=== PATIENT | female | born 1970 | race Caucasian/White ===

== ENCOUNTER 2017-08-24 10:10 | Day surgery (SDC) | payer MEDICAID ==
[~2017-08-24 10:10] MED LIST: Lactated Ringers 1,000 ML IV SCH
--- NOTE | 2017-08-24 10:50 | PCM.PREANE ---
Preanesthetic Assessment - Anesthesia/Transfusion/Family Hx Anesthesia History: Prior Anesthesia Without Reaction Family History of Anesthesia Reaction: No Transfusion History: Prior Transfusion Without Reaction Intubation History: Unknown - Review of Systems General: No Symptoms Pulmonary: No Symptoms Cardiovascular: No Symptoms Gastrointestinal: No Symptoms, Other (diverticulitis x2) Neurological: No Symptoms Other: Reports: None - Physical Assessment Height: 1.55 m Weight: 102.058 kg ASA Class: 3 Mental Status: Alert & Oriented x3 Airway Class: Mallampati = 2 Dentition: Reports: Normal Dentition Thyro-Mental Finger Breadths: 3 Mouth Opening Finger Breadths: 3 ROM/Head Extension: Full Lungs: Clear to Auscultation, Normal Respiratory Effort Cardiovascular: Regular Rate, Regular Rhythm - Allergies Allergies/Adverse Reactions: Allergies Allergy/AdvReac Type Severity Reaction Status Date / Time tramadol Allergy Difficulty Verified 08/19/17 11:20 Breathing - Blood Blood Available: No - Anesthesia Plan Pre-Op Medication Ordered: None - Acknowledgements Anesthesia Type Planned: MAC Pt an Appropriate Candidate for the Planned Anesthesia: Yes Alternatives and Risks of Anesthesia Discussed w Pt/Guardian: Yes Pt/Guardian Understands and Agrees with Anesthesia Plan: Yes PreAnesthesia Questionnaire HEENT History: Reports: Other (See Below) Other HEENT History: wears glasses Gastrointestinal History: Reports: GERD, Other (See Below) Other Gastrointestinal History: diverticulitis Genitourinary History: Reports: Renal Calculus Musculoskeletal History: Reports: Fracture Other Musculoskeletal History: hx fx wrist, fx left arm, Neurological History: Reports: Concussion Psychiatric History: Reports: Anxiety Endocrine/Metabolic History: Reports: Hypothyroidism, Obesity/BMI 30+ Hematologic History: Reports: Blood Transfusion(s) Dermatologic History: Reports: Eczema - Past Surgical History Head Surgeries/Procedures: Reports: None Female Surgical History: Reports: Lithotripsy/ESWL, Tubal Ligation Musculoskeletal Surgical History: Reports: Other (See Below) Other Musculoskeletal Surgeries/Procedures:: "Right thumb amputation and reattachment; screws in left wrist, bone marrow transfer from rt leg to lt leg as a child" - SUBSTANCE USE Smoking Status *Q: Former Smoker Tobacco Use Within Last Twelve Months: Snuff/Dip Second Hand Smoke Exposure: No Days Per Week of Alcohol Use: 1 Number of Drinks Per Day: 4 Total Drinks Per Week: 4 Recreational Drug Use History: No - HOME MEDS Home Medications: Home Meds FA/Lycopene/Lut/MV,Ca,Iron,Min [Centrum] 1 tab PO DAILY 08/19/17 [History] Phentermine HCl 1 tab PO DAILY 08/19/17 [History] - CURRENT (IN HOUSE) MEDS Current Meds: Current Medications Lactated Ringer's (Ringers, Lactated) 1,000 mls @ 125 mls/hr IV ASDIRECTED JAYLAN
[2017-08-24] MEDS ORDERED: Propofol 200 MG/20 ML SDV ONE (11:38)
[2017-08-24] MEDS ORDERED: Lidocaine 2% 5 ML SDV ONE (11:38)
[2017-08-24] MEDS ORDERED: Midazolam 1 MG/ML 2 ML SDV ONE (11:39)
[2017-08-24] MEDS ORDERED: fentaNYL 100 MCG/2 ML SDV ONE (11:39)
--- NOTE | 2017-08-24 12:54 | PCM.OPNOTE ---
- General Post-Op/Procedure Note Date of Surgery/Procedure: 08/24/17 Operative Procedure(s): Esophagogastroduodenoscopy with biopsy. Colonoscopy. Pre Op Diagnosis: Progressive heartburn. Chronic left lower quadrant pain. Family history of colon cancer. Post-Op Diagnosis: Gastritis with hiatal hernia. Minimal sigmoid diverticulosis. Anesthesia Technique: MAC (ASA III) Primary Surgeon: Ankit Powers Condition: Good Free Text/Narrative:: Dictation [id number] CPT CODE [id number]
[2017-08-24] MEDS ORDERED: Lactated Ringers 1,000 ML IV SCH (13:00)
--- NOTE | 2017-08-24 13:14 | OR ---
SURGEON: Ankit Powers M.D. DATE OF PROCEDURE: 08/24/2017 OPERATION PERFORMED: Colonoscopy. ANESTHESIA: MAC. ASA CLASSIFICATION: III. PREOPERATIVE DIAGNOSES: 1. Left lower quadrant pain. 2. Family history of colon cancer. POSTOPERATIVE DIAGNOSIS: Mild sigmoid diverticulosis. DESCRIPTION OF PROCEDURE: With the patient having completed esophagogastroduodenoscopy, the scopes were switched out and colonoscopy was begun. The colonoscope was inserted into the rectum and advanced with minimal difficulty to the cecum where the colonoscope was retroflexed to visualize the ascending colon from below. The colonoscope was then straightened and slowly withdrawn. The cecum, ascending colon, hepatic flexure, transverse colon, splenic flexure, and descending colon showed no tumors, polyps, diverticula, or angiodysplastic changes. A few small scattered diverticula were noted in the sigmoid colon. No stricture, spasm, or bleeding was noted. The colonoscope was withdrawn to the rectum and retroflexed to visualize the anal orifice from above. No tumors or polyps were seen, and there were no acute hemorrhoidal changes. The colonoscope was then straightened, the rectum aspirated, and the colonoscope removed. The patient tolerated the procedure well and was taken to recovery room in stable condition. CLARISA / ESTEBAN /[id number]
--- NOTE | 2017-08-24 13:49 | PCM48HPAN ---
Post Anesthesia Note - EVALUATION WITHIN 48HRS OF ANESTHETIC Vital Signs in Normal Range: Yes Patient Participated in Evaluation: Yes Respiratory Function Stable: Yes Airway Patent: Yes Cardiovascular Function Stable: Yes Hydration Status Stable: Yes Pain Control Satisfactory: Yes Nausea and Vomiting Control Satisfactory: Yes Mental Status Recovered: Yes Resp Rate: 12 - COMMENTS/OBSERVATIONS Free Text/Narrative:: no anesthesia problems
[2017-08-24 15:48] VITALS: BP 109/58
--- NOTE | 2017-08-25 11:23 | OR ---
SURGEON: Ankit Powers M.D. DATE OF PROCEDURE: 08/24/2017 OPERATION PERFORMED: Esophagogastroduodenoscopy with biopsy. ANESTHESIA: MAC. ASA CLASSIFICATION: III. PREOPERATIVE DIAGNOSIS: Chronic gastroesophageal reflux disease. POSTOPERATIVE DIAGNOSIS: 1. Mild gastritis. 2. Hiatal hernia. DESCRIPTION OF PROCEDURE: The patient was taken to the endoscopy room, positioned on the endoscopy table in the left lateral decubitus position. Time-out was called for appropriate identification of patient and procedure. Monitored anesthesia care was provided. The bite block was placed between the patient's teeth. The gastroscope was inserted through the bite block into the oropharynx and advanced without difficulty through the esophagus and stomach into the duodenum where examination was carried out in a retrograde fashion. The duodenum shows no acute inflammatory changes or ulcerations. The stomach does show a mild linear gastritis. Antral biopsies were obtained to look for the presence of Helicobacter pylori. The gastroscope was then retroflexed to visualize the proximal stomach. No polyps, ulcerations, or tumors were noted. The patient does have a hiatal hernia that could be seen both from below and above. The gastroscope was then slowly withdrawn carefully visualizing the greater and lesser curvatures. No lesions were identified other than the hiatal hernia. The GE junction was well defined and shows no acute inflammatory changes or ulcerations. The esophagus demonstrated good contractility. No mid or proximal lesions were identified. The vocal cords were visualized as the scope was withdrawn and noted to move symmetrically. The gastroscope was then removed with the patient having tolerated the procedure well. Following colonoscopy, she was taken to recovery room in stable condition. CLARISA / ESTEBAN /[id number]
== END 2017-08-24 14:10 | disposition home or self-care (01) ==
LOC: MW.SDS 10:10
PROVIDERS: ATTEND Surgery
DX: Z12.11 Encounter for screening for malignant neoplasm of colon (principal); K29.50 Unspecified chronic gastritis without bleeding; K57.30 Diverticulosis of large intestine without perforation or abscess without bleeding; K44.9 Diaphragmatic hernia without obstruction or gangrene; E03.9 Hypothyroidism, unspecified; Z80.0 Family history of malignant neoplasm of digestive organs; Z88.8 Allergy status to other drugs, medicaments and biological substances; Z79.899 Other long term (current) drug therapy; Z87.891 Personal history of nicotine dependence
CPT/HCPCS: 36415; 43239; 45378; 84703; J2250; J3010; J7120; 00813; 88305; 88312; J2704

== ENCOUNTER 2018-02-25 07:03 | Day surgery (SDC) | payer MEDICAID ==
[~2018-02-25 07:03] MED LIST changes: +Sodium Chloride 0.9% 10 ML Syringe FLUSH PRN; +Sodium Chloride 0.9% 2.5 ML Syringe FLUSH PRN
[2018-02-25] MEDS ORDERED: Sugammadex Sodium 200 MG/2 ML VIAL ONE (07:18)
[2018-02-25] MEDS ORDERED: Glycopyrrolate 0.2 MG/ML SDV ONE (07:21)
[2018-02-25] MEDS ORDERED: Ketorolac 30 MG/ML SDV ONE (07:21)
[2018-02-25] MEDS ORDERED: Ondansetron 4 MG/2 ML SDV ONE (07:21)
[2018-02-25] MEDS ORDERED: Lidocaine 2% 5 ML SDV ONE (07:21)
[2018-02-25] MEDS ORDERED: Rocuronium 10 MG/ML 10 ML Syringe ONE (07:21)
[2018-02-25] MEDS ORDERED: fentaNYL 250 MCG/5 ML SDV ONE (07:23)
[2018-02-25] MEDS ORDERED: Midazolam 1 MG/ML 2 ML SDV ONE (07:23)
[2018-02-25] MEDS ORDERED: Propofol 200 MG/20 ML SDV ONE (07:23)
--- NOTE | 2018-02-25 07:44 | PCM.PREANE ---
Preanesthetic Assessment - Anesthesia/Transfusion/Family Hx Anesthesia History: Prior Anesthesia Without Reaction Family History of Anesthesia Reaction: No Transfusion History: Prior Transfusion Without Reaction Intubation History: Unknown - Review of Systems General: No Symptoms Pulmonary: No Symptoms Cardiovascular: No Symptoms Gastrointestinal: No Symptoms Neurological: No Symptoms Other: Reports: None - Physical Assessment NPO Status Date: 02/25/18 NPO Status Time: 04:30 Height: 5 ft 1 in Weight: 95.254 kg ASA Class: 2 Mental Status: Alert & Oriented x3 Airway Class: Mallampati = 2 Dentition: Reports: Normal Dentition Thyro-Mental Finger Breadths: 3 Mouth Opening Finger Breadths: 3 ROM/Head Extension: Full Lungs: Clear to Auscultation, Normal Respiratory Effort Cardiovascular: Regular Rate, Regular Rhythm - Allergies Allergies/Adverse Reactions: Allergies Allergy/AdvReac Type Severity Reaction Status Date / Time tramadol Allergy Difficulty Verified 02/22/18 12:14 Breathing - Acknowledgements Anesthesia Type Planned: General Anesthesia Pt an Appropriate Candidate for the Planned Anesthesia: Yes Alternatives and Risks of Anesthesia Discussed w Pt/Guardian: Yes Pt/Guardian Understands and Agrees with Anesthesia Plan: Yes PreAnesthesia Questionnaire HEENT History: Reports: Glaucoma, Other (See Below) Other HEENT History: wears glasses Cardiovascular History: Reports: Blood Clots/VTE/DVT, Hypertension Respiratory History: Reports: None Gastrointestinal History: Reports: Chronic Constipation, Diverticulosis, GERD ( Daily) Other Gastrointestinal History: diverticulitis Genitourinary History: Reports: Renal Calculus 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: Musculoskeletal History: Reports: Fracture Other Musculoskeletal History: hx fx wrist, fx left arm, Neurological History: Reports: Concussion Psychiatric History: Reports: Anxiety Endocrine/Metabolic History: Reports: Obesity/BMI 30+ Hematologic History: Reports: Blood Transfusion(s) Immunologic History: Reports: None Oncologic (Cancer) History: Reports: None Dermatologic History: Reports: Eczema - Infectious Disease History Infectious Disease History: Reports: None - Past Surgical History Head Surgeries/Procedures: Reports: None HEENT Surgical History: Reports: Visual Other HEENT Surgeries/Procedures: hx laser surgery for glaucoma GI Surgical History: Reports: Colonoscopy, EGD, Other (See Below) (Hiatal Hernia ) Female Surgical History: Reports: Tubal Ligation Musculoskeletal Surgical History: Reports: ORIF Other Musculoskeletal Surgeries/Procedures:: hx ORIF left wrist (has hardware), hx of traumatic amputation of right thumb-reattached, 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 - SUBSTANCE USE Smoking Status *Q: Current Every Day Smoker Tobacco Use Within Last Twelve Months: Smokeless Tobacco Recreational Drug Use History: No - HOME MEDS Home Medications: Home Meds FA/Lycopene/Lut/MV,Ca,Iron,Min [Centrum] 1 tab PO DAILY 08/19/17 [History] Phentermine HCl 1 tab PO DAILY 08/19/17 [History] Dicyclomine [Bentyl] 10 mg PO TID PRN #30 cap 02/09/18 [Rx] Pantoprazole Sodium [Protonix] 40 mg PO DAILY #30 tablet. 02/09/18 [Rx] Sennosides/Docusate Sodium [Docusate Sodium-Sennosides Tab] 1 each PO DAILY PRN #30 tablet 02/09/18 [Rx] - CURRENT (IN HOUSE) MEDS Current Meds: Current Medications Lactated Ringer's (Ringers, Lactated) 1,000 mls @ 125 mls/hr IV ASDIRECTED JAYLAN Sodium Chloride (Saline Flush) 10 ml FLUSH ASDIRECTED PRN PRN Reason: Keep Vein Open Sodium Chloride (Saline Flush) 2.5 ml FLUSH ASDIRECTED PRN PRN Reason: Keep Vein Open Discontinued Medications Fentanyl (Sublimaze) Confirm Administered Dose 250 mcg .ROUTE .STK-MED ONE Stop: 02/25/18 07:24 Glycopyrrolate (Robinul) Confirm Administered Dose 0.2 mg .ROUTE .STK-MED ONE Stop: 02/25/18 07:22 Ketorolac Tromethamine (Toradol) Confirm Administered Dose 30 mg .ROUTE .STK- MED ONE Stop: 02/25/18 07:22 Lidocaine (Xylocaine-Mpf 2%) Confirm Administered Dose 5 ml .ROUTE .STK-MED ONE Stop: 02/25/18 07:22 Midazolam HCl (Versed 1 Mg/Ml) Confirm Administered Dose 2 mg .ROUTE .STK-MED ONE Stop: 02/25/18 07:24 Ondansetron HCl (Zofran) Confirm Administered Dose 4 mg .ROUTE .STK-MED ONE Stop: 02/25/18 07:22 Propofol (Diprivan 20 Ml) Confirm Administered Dose 200 mg .ROUTE .STK-MED ONE Stop: 02/25/18 07:24 Rocuronium [place] (Zemuron) Confirm Administered Dose 100 mg .ROUTE .STK-MED ONE Stop: 02/25/18 07:22 Sugammadex Sodium (Bridion) Confirm Administered Dose 200 mg .ROUTE .STK-MED ONE Stop: 02/25/18 07:19
[2018-02-25] MEDS ORDERED: Famotidine 20 MG/2 ML SDV IVPUSH ONE (07:45)
[2018-02-25] MEDS ORDERED: Scopolamine 1.5 MG Transdermal Patch TRDERM PRN (07:45)
[2018-02-25] MEDS ORDERED: Midazolam 1 MG/ML 2 ML SDV IVPUSH ONE (07:49)
[2018-02-25] MEDS ORDERED: Bupivacaine 0.5% 30 ML SDV ONE (08:43)
[2018-02-25] MEDS ORDERED: ceFAZolin 1 GM Vial ONE (09:15)
[2018-02-25] MEDS ORDERED: Sodium Chloride 0.9% 20 ML ONE (09:15)
[2018-02-25] MEDS ORDERED: Phenylephrine/Normal Saline 100 MCG/ML 10 ML Syringe ONE (09:17)
--- NOTE | 2018-02-25 10:52 | PCM.OPNOTE ---
- General Post-Op/Procedure Note Date of Surgery/Procedure: 02/25/18 Operative Procedure(s): Laparoscopic cholecystectomy Findings: Dense thick adhesions on the anterior wall of the liver to the abdominal wall, distended mildly inflamed gallbladder. Pre Op Diagnosis: Biliary dyskinesia Post-Op Diagnosis: Biliary dyskinesia, Adhesive capsulitis of the liver Anesthesia Technique: General ET Tube Primary Surgeon: Tatiana Trinh Fluid Replacement, Intraop: 600 Output, Urine Amount: 300 EBL in mLs: 10 Condition: Good
[2018-02-25] MEDS ORDERED: Cyclobenzaprine 10 MG Tab PO PRN ×2 (10:53→14:15)
[2018-02-25] MEDS ORDERED: Promethazine 25 MG/ML SDV IM ONE (11:06)
[2018-02-25] MEDS ORDERED: fentaNYL 250 MCG/5 ML SDV IVPUSH ONE (11:10)
--- NOTE | 2018-02-25 11:10 | PCM.POSTAN ---
POST ANESTHESIA ASSESSMENT - MENTAL STATUS Mental Status: Oriented, Somnolent - RESPIRATORY Respiratory Status: Respiratory Rate WNL, Airway Patent, O2 Saturation Stable - CARDIOVASCULAR CV Status: Pulse Rate WNL, Blood Pressure Stable - GASTROINTESTINAL GI Status: [place] (known with prior anesthetics - ordered phenergan 25mg im) - PAIN Pain Score: 10 (given fentanyl per orders) - POST OP HYDRATION Hydration Status: Adequate & Stable Free Text/Narrative:: continue iv hydration and await any PO intake - OBSERVATIONS Free Text/Narrative:: Bedrest with low lights best treatment for current condition
[2018-02-25] MEDS ORDERED: Promethazine 25 MG/ML SDV ONE (11:11)
[2018-02-25] MEDS ORDERED: fentaNYL 100 MCG/2 ML SDV ONE (11:22)
[2018-02-25] MEDS ORDERED: Promethazine 25 MG/ML SDV IM PRN (14:12)
[2018-02-25] MEDS ORDERED: Metoclopramide 10 MG/2 ML SDV IV PRN (14:12)
[2018-02-25] MEDS ORDERED: Ondansetron 4 MG/2 ML SDV IVPUSH PRN (14:12)
[2018-02-25] MEDS ORDERED: HYDROmorphone 1 MG/ML Syringe IVPUSH PRN (14:12)
[2018-02-25] MEDS ORDERED: diphenhydrAMINE 50 MG/ML SDV IVPUSH PRN (14:12)
--- NOTE | 2018-02-25 14:16 | PCM.SN ---
- Free Text/Narrative Note: Patient is having pain along the RUQ not well controlled with oral medication. Had a lot of nausea after the surgery as well. I performed an extensive lysis of adhesions in the RUQ. Will admit overnight for pain and nausea control. No need for labs in the morning. Ok to have clears as tolerated tonight.
[2018-02-25] MEDS: Acetaminophen/HYDROcodone 325-5 MG Tab PO PRN ×2 (14:21→19:41)
--- NOTE | 2018-02-25 17:29 | PCM.SURGPN ---
- General Info Date of Service: 02/25/18 Date of Surgery/Procedure: 02/25/18 POD#: 0 Functional Status: Reports: Pain Controlled, Tolerating Diet - Review of Systems General: Reports: No Symptoms Pulmonary: Reports: No Symptoms Cardiovascular: Reports: No Symptoms Gastrointestinal: Reports: No Symptoms Musculoskeletal: Reports: No Symptoms Skin: Reports: No Symptoms - Patient Data Vitals - Most Recent: Last Vital Signs Temp 36.0 C 02/25/18 11:50 Pulse 63 02/25/18 15:00 Resp 14 02/25/18 15:00 BP 107/71 02/25/18 15:00 Pulse Ox 97 02/25/18 15:00 Weight - Most Recent: 95.254 kg I&O - Last 24 Hours: Intake & Output 02/25/18 02/25/18 02/25/18 06:59 14:59 22:59 Intake Total 1400 150 Output Total 600 Balance 800 150 Lab Results Last 24 Hrs: Laboratory Results - last 24 hr 02/25/18 Range/Units 07:20 Urine HCG, Qual NEGATIVE (NEGATIVE) Med Orders - Current: Current Medications Hydrocodone Bitart/Acetaminophen ([place] 325-5 Mg) 2 tab PO Q4H PRN PRN Reason: Abdominal Pain Last Admin: 02/25/18 14:21 Dose: 2 tab Cyclobenzaprine HCl (Flexeril) 10 mg PO BID PRN PRN Reason: Muscle Spasm Last Admin: 02/25/18 16:05 Dose: 10 mg Diphenhydramine HCl (Benadryl) 50 mg IVPUSH Q4H PRN PRN Reason: Itching Hydromorphone HCl (Dilaudid) 0.5 mg IVPUSH Q1H PRN PRN Reason: Pain (severe 7-10) Last Admin: 02/25/18 16:23 Dose: 0.5 mg Lactated Ringer's (Ringers, Lactated) 1,000 mls @ 125 mls/hr IV ASDIRECTED [facility] Last Admin: 02/25/18 07:44 Dose: 125 mls/hr Metoclopramide HCl (Reglan) 5 mg IV Q6H PRN PRN Reason: Nausea Ondansetron HCl (Zofran) 4 mg IVPUSH Q6H PRN PRN Reason: Nausea/Vomiting Promethazine HCl (Phenergan) 25 mg IM Q6H PRN PRN Reason: Nausea Scopolamine (Transderm-Scop) 1.5 mg TRDERM Q72H PRN PRN Reason: PONV Last Admin: 02/25/18 07:55 Dose: 1.5 mg Senna/Docusate Sodium (Senna Plus) 1 tab PO BID JAYLAN Sodium Chloride (Saline Flush) 10 ml FLUSH ASDIRECTED PRN PRN Reason: Keep Vein Open Sodium Chloride (Saline Flush) 2.5 ml FLUSH ASDIRECTED PRN PRN Reason: Keep Vein Open Discontinued Medications Bupivacaine HCl (Marcaine 0.5%) Confirm Administered Dose 30 ml .ROUTE .STK-MED ONE Stop: 02/25/18 08:44 Cefazolin Sodium (Ancef) Confirm Administered Dose 2 gm .ROUTE .STK-MED ONE Stop: 02/25/18 09:16 Cyclobenzaprine HCl (Flexeril) 10 mg PO DAILY PRN PRN Reason: Muscle Spasm Famotidine (Pepcid) 20 mg IVPUSH ONETIME ONE Stop: 02/25/18 07:46 Last Admin: 02/25/18 07:55 Dose: 20 mg Fentanyl (Sublimaze) Confirm Administered Dose 250 mcg .ROUTE .STK-MED ONE Stop: 02/25/18 07:24 Fentanyl (Sublimaze) 250 mcg IVPUSH ONETIME ONE Stop: 02/25/18 11:11 Fentanyl (Sublimaze) Confirm Administered Dose 100 mcg .ROUTE .STK-MED ONE Stop: 02/25/18 11:23 Glycopyrrolate (Robinul) Confirm Administered Dose 0.2 mg .ROUTE .STK-MED ONE Stop: 02/25/18 07:22 Sodium Chloride (Normal Saline) Confirm Administered Dose 20 mls @ as directed .ROUTE .STK-MED ONE Stop: 02/25/18 09:16 Ketorolac Tromethamine (Toradol) Confirm Administered Dose 30 mg .ROUTE .STK- MED ONE Stop: 02/25/18 07:22 Lidocaine (Xylocaine-Mpf 2%) Confirm Administered Dose 5 ml .ROUTE .STK-MED ONE Stop: 02/25/18 07:22 Midazolam HCl (Versed 1 Mg/Ml) Confirm Administered Dose 2 mg .ROUTE .STK-MED ONE Stop: 02/25/18 07:24 Midazolam HCl (Versed 1 Mg/Ml) 2 mg IVPUSH ONETIME ONE Stop: 02/25/18 07:50 Last Admin: 02/25/18 07:55 Dose: 2 mg Ondansetron HCl (Zofran) Confirm Administered Dose 4 mg .ROUTE .STK-MED ONE Stop: 02/25/18 07:22 Phenylephrine HCl (Phenylephrine In Ns 100 Mcg/Ml) Confirm Administered Dose 1 mg .ROUTE .STK-MED ONE Stop: 02/25/18 09:18 Promethazine HCl (Phenergan) 25 mg IM ONETIME ONE Stop: 02/25/18 11:07 Last Admin: 02/25/18 11:14 Dose: 25 mg Promethazine HCl (Phenergan) Confirm Administered Dose 25 mg .ROUTE .STK-MED ONE Stop: 02/25/18 11:12 Propofol (Diprivan 20 Ml) Confirm Administered Dose 200 mg .ROUTE .STK-MED ONE Stop: 02/25/18 07:24 Rocuronium [place] (Zemuron) Confirm Administered Dose 100 mg .ROUTE .STK-MED ONE Stop: 02/25/18 07:22 Sugammadex Sodium (Bridion) Confirm Administered Dose 200 mg .ROUTE .STK-MED ONE Stop: 02/25/18 07:19 - Exam General: Alert, Oriented, Cooperative, No Acute Distress Lungs: Normal Respiratory Effort Cardiovascular: Regular Rate GI/Abdominal Exam: Soft, Non-Tender, No Distention, No Mass Skin: Warm, Dry, Intact - Problem List & Annotations (1) Biliary dyskinesia SNOMED Code(s): 915186415 Code(s): K82.8 - OTHER SPECIFIED DISEASES OF GALLBLADDER Status: Acute Current Visit: Yes (2) [id number] syndrome SNOMED Code(s): 174270217 Code(s): IWZ3321 - Status: Acute Current Visit: Yes - Problem List Review Problem List Initiated/Reviewed/Updated: Yes - My Orders Last 24 Hours: Active Orders 24 hr Category Date Time Status RT Incentive Spirometry [RC] Q1HWA Care 02/25/18 14:12 Active Ready for Discharge [RC] PER UNIT ROUTINE Care 02/25/18 10:52 Inactive Up ad Fernanda [RC] ASDIRECTED Care 02/25/18 14:12 Active Vital Signs [RC] PER UNIT ROUTINE Care 02/25/18 14:12 Active Regular Diet [DIET] Diet 02/25/18 Dinner Active HCG QUALITATIVE,URINE [URCHEM] Routine Lab 02/25/18 07:20 Ordered Acetaminophen/HYDROcodone [[place] 325-5 MG] Med 02/25/18 10:53 Active 2 tab PO Q4H PRN Cyclobenzaprine [Flexeril] Med 02/25/18 14:15 Active 10 mg PO BID PRN Docusate Sodium/Sennosides [Senna Plus] Med 02/26/18 08:00 Active 1 tab PO BID HYDROmorphone [Dilaudid] Med 02/25/18 14:12 Active 0.5 mg IVPUSH Q1H PRN Metoclopramide [Reglan] Med 02/25/18 14:12 Active 5 mg IV Q6H PRN Ondansetron [Zofran] Med 02/25/18 14:12 Active 4 mg IVPUSH Q6H PRN Promethazine [Phenergan] Med 02/25/18 14:12 Active 25 mg IM Q6H PRN Scopolamine [Transderm-Scop] Med 02/25/18 07:45 Active 1.5 mg TRDERM Q72H PRN diphenhydrAMINE [Benadryl] Med 02/25/18 14:12 Active 50 mg IVPUSH Q4H PRN Medication Orders Hydrocodone Bitart/Acetaminophen ([place] 325-5 Mg) 2 tab PO Q4H PRN PRN Reason: Abdominal Pain Last Admin: 02/25/18 14:21 Dose: 2 tab Cyclobenzaprine HCl (Flexeril) 10 mg PO BID PRN PRN Reason: Muscle Spasm Last Admin: 02/25/18 16:05 Dose: 10 mg Diphenhydramine HCl (Benadryl) 50 mg IVPUSH Q4H PRN PRN Reason: Itching Hydromorphone HCl (Dilaudid) 0.5 mg IVPUSH Q1H PRN PRN Reason: Pain (severe 7-10) Last Admin: 02/25/18 16:23 Dose: 0.5 mg Lactated Ringer's (Ringers, Lactated) 1,000 mls @ 125 mls/hr IV ASDIRECTED JAYLAN Last Admin: 02/25/18 07:44 Dose: 125 mls/hr Metoclopramide HCl (Reglan) 5 mg IV Q6H PRN PRN Reason: Nausea Ondansetron HCl (Zofran) 4 mg IVPUSH Q6H PRN PRN Reason: Nausea/Vomiting Promethazine HCl (Phenergan) 25 mg IM Q6H PRN PRN Reason: Nausea Scopolamine (Transderm-Scop) 1.5 mg TRDERM Q72H PRN PRN Reason: PONV Last Admin: 02/25/18 07:55 Dose: 1.5 mg Senna/Docusate Sodium (Senna Plus) 1 tab PO BID JAYLAN Sodium Chloride (Saline Flush) 10 ml FLUSH ASDIRECTED PRN PRN Reason: Keep Vein Open Sodium Chloride (Saline Flush) 2.5 ml FLUSH ASDIRECTED PRN PRN Reason: Keep Vein Open - Plan Plan (Free Text/Narrative):: Patient is feeling well this evening. Nausea has resolved and she tolerated some toast earlier. She is taking in good po. Will advance diet to regular and d /c IVF. Encouraged patient to use po medications for pain tonight. If pain is well controlled on oral medications and patient is able to ambulate without difficulty can d/c home tonight. If not will watch overnight and discharge home tomorrow.
--- NOTE | 2018-02-25 18:25 | OR ---
SURGEON: TG YATES MD DATE OF PROCEDURE: 02/25/2018 PREOPERATIVE DIAGNOSIS: Biliary dyskinesia. POSTOPERATIVE DIAGNOSES: 1. Biliary dyskinesia. 2. Gesm-Nzdd-Qbctmo syndrome. PROCEDURES PERFORMED: Laparoscopic cholecystectomy, lysis of adhesions. ANESTHESIA: General endotracheal anesthesia. FLUIDS: 600 mL of crystalloid. URINE OUTPUT: 300 mL. ESTIMATED BLOOD LOSS: 10 mL. FINDINGS: Extensive dense adhesions along the anterior wall of the liver to the anterior abdominal wall. The gallbladder appeared distended and mildly inflamed. COMPLICATIONS: None. INDICATIONS: The patient is a 47-year-old female, who presented to the emergency room several weeks ago with sharp acute epigastric pain. A workup for chest pathology was performed, which was negative. A HIDA scan was done inpatient that showed 0% ejection fraction of the gallbladder consistent with biliary dyskinesia. I explained the need for a cholecystectomy. I explained the laparoscopic and open approaches. I explained to the patient that I would attempt this laparoscopically, but should I be unable to perform it safely, I would convert to open. The patient and I discussed the expected perioperative course as well as the risks including bleeding, infection, or damage to surrounding structures. The patient verbalized understanding and wishes to proceed. PROCEDURE IN DETAIL: The patient was brought into the OR and placed on the OR table in supine position. A time-out was completed verifying the patient's name, age, date of , allergies, and procedure to be performed. General endotracheal anesthesia was induced. The left arm was tucked at the patient's side and a Tucker catheter placed. The abdomen was prepped and draped in usual standard fashion. I anesthetized the supraumbilical midline with 0.5% Marcaine plain. A 3 cm incision was made using a 15 blade. Cautery was used to dissect down to the level of the subcutaneous fat. I bluntly dissected my way down to the level of fascia. The fascia was elevated with Mihir's and incised sharply with Morrison scissors. Entry into the abdomen was palpated. Stay sutures were placed on either side of the fascia using 0 Vicryl. A 12 mm Yael trocar was inserted in the abdomen and the abdomen insufflated to a pressure of 12 mmHg. I inserted a 5 mm 30-degree scope into the abdomen and inspected the area underneath my initial trocar placement. This appeared normal. The patient was placed in reverse Trendelenburg position and airplaned slightly to the left. Upon inspecting the abdomen, the patient was noted to have a thick dense adhesions between the anterior abdominal wall and the anterior surface of the liver. These were consistent with adhesive capsulitis of the liver. In order for me to perform the procedure safely, the decision was made to lyse these adhesions. Using combination of hook cautery and a laparoscopic scissors, I carefully took down these adhesions along the anterior surface of the liver. A few small adhesions over the proximal-most dome of the gallbladder were unable to be reached; however, approximately 95% of the adhesions were taken down. I inspected the right lobe of the liver, there did not appear to be any adhesions along this area. There were no other intraabdominal adhesions noted. This is most consistent with Ntat-Msnx-Rudqjg syndrome. The dissection was completed through 5 mm lap trocars that were placed under direct visualization in the following locations, one in the epigastric area, one along the right flank, and one 2 fingerbreadths below the right subcostal margin in the midclavicular line. Once these adhesions were completely removed, I was then able to grasp the dome of the gallbladder safely with an atraumatic grasper and lifted above the liver. This exposed the infundibulum. The infundibulum was grasped with an atraumatic grasper and I took down the peritoneal attachments around the infundibulum with a Deborah dissector, hook cautery, and a Kittner. I carefully cleared away the attachments until I was able to clearly identify my cystic duct and cystic artery. Once these were visualized, they were doubly clipped and ligated. The gallbladder was then removed from the cystic plate using electrocautery. This was difficult, given that the gallbladder was distended and mildly inflamed. Once the gallbladder was free, the gallbladder fossa was placed in an EndoCatch bag and removed through the 12 mm port site at the supraumbilical area. I then placed the 12 mm Yael trocar back into the abdomen. I inspected my operative field. It appeared to be hemostatic with no evidence of bile leakage. I irrigated the abdomen with normal saline until it ran clear. The 5 mm trocars were then removed under direct visualization and the abdomen allowed to desufflate. The 12 mm trocar was removed, and I closed the fascia at the 12 mm port site with interrupted 0 Vicryl sutures. The subcutaneous fat was closed with interrupted 3-0 Vicryl and the skin was closed with a running 4-0 Monocryl stitch. The 5 mm trocar sites were closed with interrupted 4-0 Monocryl sutures. Steri-Strips and sterile dressings were applied. The patient tolerated the procedure well and was transferred to the PACU in stable condition. TRINH ORELLANA /[id number] MTDD
[2018-02-25 19:23] VITALS: BP 103/64
== END 2018-02-25 21:00 | disposition home or self-care (01) ==
LOC: MW.SDS 07:03 → MW.MS 13:39 → MW.SDS 21:00
PROVIDERS: ATTEND Surgery
DX: K80.10 Calculus of gallbladder with chronic cholecystitis without obstruction (principal); K82.8 Other specified diseases of gallbladder; K66.0 Peritoneal adhesions (postprocedural) (postinfection); K65.8 Other peritonitis; I10 Essential (primary) hypertension; E66.9 Obesity, unspecified; F17.290 Nicotine dependence, other tobacco product, uncomplicated; K21.9 Gastro-esophageal reflux disease without esophagitis; Z79.899 Other long term (current) drug therapy
CPT/HCPCS: 81025; 88304; A9270-GY; J0690; J1170; J1885; J2250; J2370; J2405; J2550; J2704; J3010; J3490; J7120

== ENCOUNTER 2018-10-19 11:25 | Emergency (ER) | payer MEDICAID ==
--- NOTE | 2018-10-19 11:52 | EDM.PDOC ---
ED HPI GENERAL MEDICAL PROBLEM - General Chief Complaint: General Stated Complaint: NUMBNESS IN ARM/BLURRY VISION Time Seen by Provider: 10/19/18 11:35 Source of Information: Reports: Patient History Limitations: Reports: No Limitations - History of Present Illness INITIAL COMMENTS - FREE TEXT/NARRATIVE: HISTORY AND PHYSICAL: History of present illness: Patient is a 48-year-old female who presents to the ED today with concern of dizziness, bilateral hand tingling, and concern for blurred vision x 4 months. She states she also has throat pain which is what brought her to the ED today since yesterday. Patient states that she does sensation in her hands feels like pins and needles. Patient states that she feels dizzy if she stands up too quickly and that her vision will get blurred when this happens. Patient also complains of a sore throat and states that it feels painful to swallow. Patient states she has been able to eat and drink despite this. Patient states she once was told she had an issue with her thyroid but had never following up on this. Patient does wear glasses and has not had her as adjusted in some time according the patient. Patient denies fever, chills, chest pain, shortness of breath, or cough. Denies headache, neck stiff ness, syncope, or near syncope. Denies nausea, vomiting, abdominal pain, diarrhea, constipation, or dysuria. Has not noted any blood in urine or stool. Patient has been eating and drinking appropriately. Review of systems: As per history of present illness and below otherwise all systems reviewed and negative. Past medical history: As per history of present illness and as reviewed below otherwise noncontributory. Surgical history: As per history of present illness and as reviewed below otherwise noncontributory. Social history: See social history for further information Family history: As per history of present illness and as reviewed below otherwise noncontributory. Physical exam: General: Patient is alert, oriented, and in no acute distress. Patient sitting comfortably on exam table. HEENT: Atraumatic, normocephalic, pupils equal and reactive bilaterally, negative for conjunctival pallor or scleral icterus, mucous membranes moist, TMs normal bilaterally, throat is mildly erythematous without exudate, neck supple, nontender, trachea midline. No drooling or trismus noted. No meningeal signs. No hot potato voice noted. Visual acuity was performed upon arrival to the ED and intact. Lungs: Clear to auscultation, breath sounds equal bilaterally, chest nontender. Heart: S1S2, regular rate and rhythm without overt murmur Abdomen: Obese, soft, nondistended, nontender. Negative for masses or hepatosplenomegaly. Negative for costovertebral tenderness. Pelvis: Stable nontender. Genitourinary: Deferred. Rectal: Deferred. Skin: Intact, warm, dry. No lesions or rashes noted. Extremities: Atraumatic, negative for cords or calf pain. Neurovascular unremarkable. Positive Phalen and Tinel sign of the bilateral extremity. Patient has prior scars of the bilateral wrist consistent with surgical history. Neuro: Awake, alert, oriented. Cranial nerves II through XII unremarkable. Cerebellum unremarkable. Motor and sensory unremarkable throughout. Exam nonfocal. Notes: On exam, patient does have positive Phalen and no sign of the bilateral upper extremity suggestive of carpal tunnel. Patient has been dealing with blurry vision chronically. She has not seen the mica miner blasting in several years and she does wear glasses. Patient offered admission for observation for her symptoms but she declines at this time. Discussed the importance for follow-up with primary care provider/mica [facility]asting. Voices understanding and is agreeable to plan of care. Denies any further questions or concerns at this time. Diagnostics: CBC, CMP, UA, urine hCG, EKG, orthostatic vitals, head CT, TSH, strep Therapeutics: Saline, cockup wrist splints Prescription: None Impression: Bilateral carpal tunnel syndrome. Pharyngitis Plan: 1. Use wrist splints at night for symptomatic treatment. 2. Tylenol and/or Ibuprofen as directed for pain management or discomfort. Take medications as prescribed. 3. Follow up with the Orthopedic provider/primary care provider/[facility] [facility] as discussed. Return to the ED as needed and as discussed. Definitive disposition and diagnosis as appropriate pending reevaluation and review of above. throat Pain Score (Numeric/FACES): 3 - Related Data Allergies Allergy/AdvReac Type Severity Reaction Status Date / Time tramadol Allergy Difficulty Verified 10/19/18 11:38 Breathing Home Meds: Home Meds . [No Known Home Meds] 10/19/18 [History] Past Medical History HEENT History: Reports: Glaucoma, Other (See Below) Other HEENT History: wears glasses Cardiovascular History: Reports: Blood Clots/VTE/DVT, Hypertension Respiratory History: Reports: None Gastrointestinal History: Reports: Chronic Constipation, Diverticulosis, GERD Other Gastrointestinal History: diverticulitis Genitourinary History: Reports: Renal Calculus FURNITURE DETAILER History: Reports: Musculoskeletal History: Reports: Fracture Other Musculoskeletal History: hx fx wrist, fx left arm, Neurological History: Reports: Concussion Psychiatric History: Reports: Anxiety Endocrine/Metabolic History: Reports: Obesity/BMI 30+ Hematologic History: Reports: Blood Transfusion(s) Immunologic History: Reports: None Oncologic (Cancer) History: Reports: None Dermatologic History: Reports: Eczema - Infectious Disease History Infectious Disease History: Reports: None - Past Surgical History Head Surgeries/Procedures: Reports: None HEENT Surgical History: Reports: Visual Other HEENT Surgeries/Procedures: hx laser surgery for glaucoma Cardiovascular Surgical History: Reports: None Respiratory Surgical History: Reports: None GI Surgical History: Reports: Colonoscopy, EGD, Other (See Below) Female Surgical History: Reports: Tubal Ligation Endocrine Surgical History: Reports: None Neurological Surgical History: Reports: None Musculoskeletal Surgical History: Reports: ORIF Other Musculoskeletal Surgeries/Procedures:: hx ORIF left wrist (has hardware), hx of traumatic amputation of right thumb-reattached, 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 Oncologic Surgical History: Reports: None Dermatological Surgical History: Reports: None Social & Family History - Family History Family Medical History: Noncontributory - Tobacco Use Smoking Status *Q: Never Smoker Second Hand Smoke Exposure: No - Caffeine Use Caffeine Use: Reports: None - Recreational Drug Use Recreational Drug Use: No ED ROS GENERAL - Review of Systems Review Of Systems: ROS reveals no pertinent complaints other than HPI. ED EXAM, GENERAL - Physical Exam Exam: See Below (See dictation) Course - Vital Signs Last Recorded V/S: Last Vital Signs Temp 36.3 C 10/19/18 13:38 Pulse 50 L 10/19/18 13:38 Resp 16 10/19/18 13:38 BP 114/63 10/19/18 13:38 Pulse Ox 99 10/19/18 13:38 - Orders/Labs/Meds Labs: Laboratory Tests 10/19/18 10/19/18 10/19/18 Range/Units 11:58 11:58 12:00 WBC 6.59 (4.0-11.0) K/uL RBC 4.36 (4.30-5.90) M/uL Hgb 13.0 (12.0-16.0) g/dL Hct 39.0 (36.0-46.0) % MCV 89.4 (80.0-98.0) fL MCH 29.8 (27.0-32.0) pg MCHC 33.3 (31.0-37.0) g/dL RDW Std Deviation 43.1 (28.0-62.0) fl RDW Coeff of Jennifer 13 (11.0-15.0) % Plt Count 274 (150-400) K/uL MPV 9.90 (7.40-12.00) fL Neut % (Auto) 56.1 (48.0-80.0) % Lymph % (Auto) 31.0 (16.0-40.0) % Pershing % (Auto) 9.7 (0.0-15.0) % Eos % (Auto) 2.7 (0.0-7.0) % Baso % (Auto) 0.5 (0.0-1.5) % Neut # (Auto) 3.7 (1.4-5.7) K/uL Lymph # (Auto) 2.0 (0.6-2.4) K/uL Pershing # (Auto) 0.6 (0.0-0.8) K/uL Eos # (Auto) 0.2 (0.0-0.7) K/uL Baso # (Auto) 0.0 (0.0-0.1) K/uL Nucleated RBC % 0.0 /100WBC Nucleated RBCs # 0 K/uL Sodium (136-145) mmol/L Potassium (3.5-5.1) mmol/L Chloride (98-107) mmol/L Carbon Dioxide (21.0-32.0) mmol/L BUN (7.0-18.0) mg/dL Creatinine (0.6-1.0) mg/dL Est Cr Clr Drug Dosing mL/min Estimated GFR (MDRD) ml/min Glucose (74-106) mg/dL Calcium (8.5-10.1) mg/dL Total Bilirubin (0.2-1.0) mg/dL AST (15-37) IU/L ALT (14-63) IU/L Alkaline Phosphatase (46-116) U/L Total Protein (6.4-8.2) g/dL Albumin (3.4-5.0) g/dL Globulin (2.6-4.0) g/dL Albumin/Globulin Ratio (0.9-1.6) TSH 3rd Generation (0.36-3.74) uIU/mL Urine Color YELLOW Urine Appearance CLEAR Urine pH 7.0 (5.0-8.0) Ur Specific Sanford 1.010 (1.001-1.035) Urine Protein NEGATIVE (NEGATIVE) mg/dL Urine Glucose (UA) NEGATIVE (NEGATIVE) mg/dL Urine Ketones NEGATIVE (NEGATIVE) mg/dL Urine Occult Blood NEGATIVE (NEGATIVE) Urine Nitrite NEGATIVE (NEGATIVE) Urine Bilirubin NEGATIVE (NEGATIVE) Urine Urobilinogen 0.2 (<2.0) EU/dL Ur Leukocyte Esterase NEGATIVE (NEGATIVE) Urine RBC 0-1 (0-2/HPF) Urine WBC 0-1 (0-5/HPF) Ur Epithelial Cells RARE (NONE-FEW) Urine Bacteria RARE (NEGATIVE) Urine HCG, Qual NEGATIVE (NEGATIVE) 10/19/18 10/19/18 Range/Units 12:00 12:00 WBC (4.0-11.0) K/uL RBC (4.30-5.90) M/uL Hgb (12.0-16.0) g/dL Hct (36.0-46.0) % MCV (80.0-98.0) fL MCH (27.0-32.0) pg MCHC (31.0-37.0) g/dL RDW Std Deviation (28.0-62.0) fl RDW Coeff of Jennifer (11.0-15.0) % Plt Count (150-400) K/uL MPV (7.40-12.00) fL Neut % (Auto) (48.0-80.0) % Lymph % (Auto) (16.0-40.0) % Pershing % (Auto) (0.0-15.0) % Eos % (Auto) (0.0-7.0) % Baso % (Auto) (0.0-1.5) % Neut # (Auto) (1.4-5.7) K/uL Lymph # (Auto) (0.6-2.4) K/uL Pershing # (Auto) (0.0-0.8) K/uL Eos # (Auto) (0.0-0.7) K/uL Baso # (Auto) (0.0-0.1) K/uL Nucleated RBC % /100WBC Nucleated RBCs # K/uL Sodium 138 (136-145) mmol/L Potassium 3.9 (3.5-5.1) mmol/L Chloride 105 (98-107) mmol/L Carbon Dioxide 24.5 (21.0-32.0) mmol/L BUN 13 (7.0-18.0) mg/dL Creatinine 0.9 (0.6-1.0) mg/dL Est Cr Clr Drug Dosing 57.06 mL/min Estimated GFR (MDRD) > 60.0 ml/min Glucose 110 H (74-106) mg/dL Calcium 8.4 L (8.5-10.1) mg/dL Total Bilirubin 0.3 (0.2-1.0) mg/dL AST 11 L (15-37) IU/L ALT 25 (14-63) IU/L Alkaline Phosphatase 78 (46-116) U/L Total Protein 7.0 (6.4-8.2) g/dL Albumin 3.2 L (3.4-5.0) g/dL Globulin 3.8 (2.6-4.0) g/dL Albumin/Globulin Ratio 0.8 L (0.9-1.6) TSH 3rd Generation 3.43 (0.36-3.74) uIU/mL Urine Color Urine Appearance Urine pH (5.0-8.0) Ur Specific Sanford (1.001-1.035) Urine Protein (NEGATIVE) mg/dL Urine Glucose (UA) (NEGATIVE) mg/dL Urine Ketones (NEGATIVE) mg/dL Urine Occult Blood (NEGATIVE) Urine Nitrite (NEGATIVE) Urine Bilirubin (NEGATIVE) Urine Urobilinogen (<2.0) EU/dL Ur Leukocyte Esterase (NEGATIVE) Urine RBC (0-2/HPF) Urine WBC (0-5/HPF) Ur Epithelial Cells (NONE-FEW) Urine Bacteria (NEGATIVE) Urine HCG, Qual (NEGATIVE) Meds: Medications Discontinued Medications Generic Name Dose Route Start Last Admin Trade Name Freq PRN Reason Stop Dose Admin Sodium Chloride 1,000 mls @ 999 mls/hr 10/19/18 11:49 10/19/18 12:06 Normal Saline IV 10/19/18 12:49 999 mls/hr STAT ONE Administration Departure - Departure Time of Disposition: 13:29 Disposition: Home, Self-Care 01 Clinical Impression: Carpal tunnel syndrome Qualifiers: Laterality: bilateral Qualified Code(s): G56.03 - Carpal tunnel syndrome, bilateral upper limbs Pharyngitis Qualifiers: Pharyngitis/tonsillitis etiology: unspecified etiology Qualified Code(s): J02.9 - Acute pharyngitis, unspecified - Discharge Information Instructions: Carpal Tunnel Syndrome, Pharyngitis, [id number] Referrals: Jett Phoenix MD [Primary Care Provider] - Forms: ED Department Discharge Additional Instructions: The following information is given to patients seen in the emergency department who are being discharged to home. This information is to outline your options for follow-up care. We provide all patients seen in our emergency department with a follow-up referral. The need for follow-up, as well as the timing and circumstances, are variable depending upon the specifics of your emergency department visit. If you don't have a primary care physician on staff, we will provide you with a referral. We always advise you to contact your personal physician following an emergency department visit to inform them of the circumstance of the visit and for follow-up with them and/or the need for any referrals to a consulting specialist. The emergency department will also refer you to a specialist when appropriate. This referral assures that you have the opportunity for follow-up care with a specialist. All of these measure are taken in an effort to provide you with optimal care, which includes your follow-up. Under all circumstances we always encourage you to contact your private physician who remains a resource for coordinating your care. When calling for follow-up care, please make the office aware that this follow-up is from your recent emergency room visit. If for any reason you are refused follow-up, please contact the [facility] Emergency Department at and asked to speak to the emergency department charge nurse. [facility] [address] [place] [id number] [facility] [address] [place] [id number] 1. Use wrist splints at night for symptomatic treatment. 2. Tylenol and/or Ibuprofen as directed for pain management or discomfort. Take medications as prescribed. 3. Follow up with the Orthopedic provider/primary care provider/[employer] [facility]er blasting as discussed. Return to the ED as needed and as discussed.
[2018-10-19] MEDS: Sodium Chloride 0.9% 1,000 ML IV ONE (12:06)
[2018-10-19 12:41] LABS: CHLORIDE,CL 105 mmol/L (98-107); SODIUM,NA 138 mmol/L (136-145)
--- NOTE | 2018-10-19 12:55 | CT ---
EXAMINATION: Non contrast CT head. Coronal and sagittal reformats. HISTORY: Dizziness FINDINGS: No evidence of intra or extra axial hemorrhage, mass, midline shift, hydrocephalus or edema. No hypoattenuation changes in the major vascular territories to suggest acute infarct. No abnormal intracranial calcifications are detected. No evidence of substantial vascular calcifications. There is opacification of the single ethmoid air cell. Paranasal sinuses and mastoid air cells are otherwise clear. Orbits and globes are symmetric. Pituitary fossa appears unremarkable. Calvarium is intact. No evidence of skull fracture. IMPRESSION: No acute intracranial findings.
[2018-10-19 13:39] VITALS: BP 114/63
== END 2018-10-19 13:57 | disposition home or self-care (01) ==
LOC: MW.ED 11:25
DX: G56.03 Carpal tunnel syndrome, bilateral upper limbs (principal); J02.9 Acute pharyngitis, unspecified; I10 Essential (primary) hypertension; Z88.5 Allergy status to narcotic agent
CPT/HCPCS: 36415; 70450; 80053; 81001; 81025; 84443; 85025; 87081; 87880; 93005; 96360; 96361; 99284; J7040

== ENCOUNTER 2018-12-25 20:36 | Emergency (ER) | payer MEDICAID ==
--- NOTE | 2018-12-25 20:48 | EDM.PDOC ---
ED HPI GENERAL MEDICAL PROBLEM - General Chief Complaint: Lower Extremity Injury/Pain Stated Complaint: INJURED ANKLE Time Seen by Provider: 12/25/18 20:38 Source of Information: Reports: Patient History Limitations: Reports: No Limitations - History of Present Illness INITIAL COMMENTS - FREE TEXT/NARRATIVE: HISTORY AND PHYSICAL: History of present illness: Patient is a 48-year-old female who presents to the ED today via EMS with concern of right ankle injury just prior to arrival to the ED. Patient states she was at the bar and has had a few drinks and went to go lift a friend when she had slipped and twisted her right ankle. Patient denies any head injury or loss of consciousness. Patient denies any prior injury or trauma to the ankle. Patient denies fever, chills, chest pain, shortness of breath, or cough. Denies headache, neck stiff ness, change in vision, syncope, or near syncope. Denies nausea, vomiting, abdominal pain, diarrhea, constipation, or dysuria. Has not noted any blood in urine or stool. Patient has been eating and drinking appropriately. Review of systems: As per history of present illness and below otherwise all systems reviewed and negative. Past medical history: As per history of present illness and as reviewed below otherwise noncontributory. Surgical history: As per history of present illness and as reviewed below otherwise noncontributory. Social history: See social history for further information Family history: As per history of present illness and as reviewed below otherwise noncontributory. Physical exam: General: Patient is alert, oriented, and in no acute distress. Patient laying comfortably on exam table. HEENT: Atraumatic, normocephalic, pupils equal and reactive bilaterally, negative for conjunctival pallor or scleral icterus, mucous membranes moist, TMs normal bilaterally, throat clear, neck supple, nontender, trachea midline. No drooling or trismus noted. No meningeal signs. No hot potato voice noted. Lungs: Clear to auscultation, breath sounds equal bilaterally, chest nontender. Heart: S1S2, regular rate and rhythm without overt murmur Abdomen: Soft, nondistended, nontender. Negative for masses or hepatosplenomegaly. Negative for costovertebral tenderness. Pelvis: Stable nontender. Genitourinary: Deferred. Rectal: Deferred. Skin: Intact, warm, dry. No lesions or rashes noted. Extremities: Negative for cords or calf pain. Neurovascular unremarkable. Swelling of the right ankle both medially and laterally with obvious deformity. DP/PT intact with Doppler of right extremity. Unable to assess range of motion of ankle and knee due to pain and hesitation. Patient does have full range of motion of all digits on the toe and sensation of right extremity. Neuro: Awake, alert, oriented. Cranial nerves II through XII unremarkable. Cerebellum unremarkable. Motor and sensory unremarkable throughout. Exam nonfocal. Notes: Dr. Arteaga verbally involved in patient care. Dr. Miller, physician at [facility] in [place], was consult on patient and agreeable to transfer. Voices understanding and is agreeable to plan of care. Denies any further questions or concerns at this time. Diagnostics: Ankle XR, CBC, CMP, UA, EKG, ethanol Therapeutics: NS, Morphine, Zofran Impression: Distal fibula fracture, right Medial malleoli fracture, right Ankle dislocation, right Plan: 1. Transfer to [facility] via EMS. Definitive disposition and diagnosis as appropriate pending reevaluation and review of above. right ankle Pain Score (Numeric/FACES): 1 - Related Data Allergies Allergy/AdvReac Type Severity Reaction Status Date / Time pistachio nut Allergy Swelling Verified 12/25/18 20:41 strawberry Allergy Swelling Verified 12/25/18 20:41 tramadol Allergy Difficulty Verified 12/25/18 20:41 Breathing Home Meds: Home Meds . 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: Musculoskeletal History: Reports: Fracture Other Musculoskeletal History: hx fx wrist, fx left arm, Neurological History: Reports: Concussion Psychiatric History: Reports: Anxiety Endocrine/Metabolic History: Reports: Obesity/BMI 30+ Hematologic History: Reports: Blood Transfusion(s) Immunologic History: Reports: None Oncologic (Cancer) History: Reports: None Dermatologic History: Reports: Eczema - Infectious Disease History Infectious Disease History: Reports: None - Past Surgical History Head Surgeries/Procedures: Reports: None HEENT Surgical History: Reports: Visual Other HEENT Surgeries/Procedures: hx laser surgery for glaucoma Cardiovascular Surgical History: Reports: None Respiratory Surgical History: Reports: None GI Surgical History: Reports: Colonoscopy, EGD, Other (See Below) Female Surgical History: Reports: Tubal Ligation Endocrine Surgical History: Reports: None Neurological Surgical History: Reports: None Musculoskeletal Surgical History: Reports: ORIF Other Musculoskeletal Surgeries/Procedures:: hx ORIF left wrist (has hardware), hx of traumatic amputation of right thumb-reattached, 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 Oncologic Surgical History: Reports: None Dermatological Surgical History: Reports: None Social & Family History - Family History Family Medical History: Noncontributory - Caffeine Use Caffeine Use: Reports: None Review of Systems - Review of Systems Review Of Systems: ROS reveals no pertinent complaints other than HPI. ED EXAM, GENERAL - Physical Exam Exam: See Below (see dictation) Course - Vital Signs Last Recorded V/S: Last Vital Signs Temp 36 C 12/25/18 20:40 Pulse 56 L 12/25/18 21:41 Resp 18 12/25/18 21:41 BP 106/61 12/25/18 21:41 Pulse Ox 96 12/25/18 21:41 - Orders/Labs/Meds Orders: Active Orders 24 hr Category Date Time Status EKG 12 Lead [EKG Documentation Completion] [RC] STAT Care 12/25/18 20:49 Active Ondansetron [Zofran] Med 12/25/18 22:14 Once 4 mg IVPUSH ONETIME ONE Sodium Chloride 0.9% [Normal Saline] 1,000 ml Med 12/25/18 22:14 Ordered IV STAT Labs: Laboratory Tests 12/25/18 12/25/18 12/25/18 Range/Units 21:15 21:15 21:40 WBC 6.06 (4.0-11.0) K/uL RBC 4.14 L (4.30-5.90) M/uL Hgb 12.2 (12.0-16.0) g/dL Hct 37.0 (36.0-46.0) % MCV 89.4 (80.0-98.0) fL MCH 29.5 (27.0-32.0) pg MCHC 33.0 (31.0-37.0) g/dL RDW Std Deviation 43.0 (28.0-62.0) fl RDW Coeff of Jennifer 13 (11.0-15.0) % Plt Count 252 (150-400) K/uL MPV 9.80 (7.40-12.00) fL Neut % (Auto) 58.6 (48.0-80.0) % Lymph % (Auto) 33.8 (16.0-40.0) % Blaine % (Auto) 5.9 (0.0-15.0) % Eos % (Auto) 1.2 (0.0-7.0) % Baso % (Auto) 0.5 (0.0-1.5) % Neut # (Auto) 3.6 (1.4-5.7) K/uL Lymph # (Auto) 2.1 (0.6-2.4) K/uL Blaine # (Auto) 0.4 (0.0-0.8) K/uL Eos # (Auto) 0.1 (0.0-0.7) K/uL Baso # (Auto) 0.0 (0.0-0.1) K/uL Nucleated RBC % 0.0 /100WBC Nucleated RBCs # 0 K/uL Sodium 133 L (136-145) mmol/L Potassium 3.4 L (3.5-5.1) mmol/L Chloride 100 (98-107) mmol/L Carbon Dioxide 24.0 (21.0-32.0) mmol/L BUN 8 (7.0-18.0) mg/dL Creatinine 0.8 (0.6-1.0) mg/dL Est Cr Clr Drug Dosing TNP Estimated GFR (MDRD) > 60.0 ml/min Glucose 103 (74-106) mg/dL Calcium 7.8 L (8.5-10.1) mg/dL Total Bilirubin 0.2 (0.2-1.0) mg/dL AST 15 (15-37) IU/L ALT 23 (14-63) IU/L Alkaline Phosphatase 76 (46-116) U/L Total Protein 6.6 (6.4-8.2) g/dL Albumin 3.2 L (3.4-5.0) g/dL Globulin 3.4 (2.6-4.0) g/dL Albumin/Globulin Ratio 0.9 (0.9-1.6) Urine Color YELLOW Urine Appearance CLEAR Urine pH 6.0 (5.0-8.0) Ur Specific Offerman 1.010 (1.001-1.035) Urine Protein NEGATIVE (NEGATIVE) mg/dL Urine Glucose (UA) NEGATIVE (NEGATIVE) mg/dL Urine Ketones NEGATIVE (NEGATIVE) mg/dL Urine Occult Blood TRACE-LYSED H (NEGATIVE) Urine Nitrite NEGATIVE (NEGATIVE) Urine Bilirubin NEGATIVE (NEGATIVE) Urine Urobilinogen 0.2 (<2.0) EU/dL Ur Leukocyte Esterase NEGATIVE (NEGATIVE) Urine RBC 0-2 (0-2/HPF) Urine WBC 0-3 (0-5/HPF) Ur Epithelial Cells FEW (NONE-FEW) Urine Bacteria FEW (NEGATIVE) Ethyl Alcohol 184 mg/dL Meds: Medications Discontinued Medications Generic Name Dose Route Start Last Admin Trade Name Freq PRN Reason Stop Dose Admin Morphine Sulfate 2 mg 12/25/18 21:34 12/25/18 21:41 Morphine IVPUSH 12/25/18 21:35 2 mg ONETIME ONE Administration Departure - Departure Time of Disposition: 22:16 Disposition: DC/[facility]fer to [facility] 02 Clinical Impression: Fracture of distal fibula Qualifiers: Encounter type: initial encounter Fracture type: closed Fracture morphology: other fracture Laterality: right Qualified Code(s): S82.831A - Other fracture of upper and lower end of right fibula, initial encounter for closed fracture Closed fracture of ankle, medial malleolus Qualifiers: Encounter type: initial encounter Fracture alignment: nondisplaced Laterality: right Qualified Code(s): S82.54XA - Nondisplaced fracture of medial malleolus of right tibia, initial encounter for closed fracture Closed fracture of ankle, lateral malleolus Qualifiers: Encounter type: initial encounter Fracture alignment: nondisplaced Laterality: right Qualified Code(s): S82.64XA - Nondisplaced fracture of lateral malleolus of right fibula, initial encounter for closed fracture Ankle dislocation Qualifiers: Encounter type: initial encounter Laterality: right Qualified Code(s): S93.04XA - Dislocation of right ankle joint, initial encounter - Discharge Information Referrals: PCP,None [Primary Care Provider] - Forms: ED Department Discharge - My Orders Last 24 Hours: My Active Orders 12/25/18 20:49 EKG 12 Lead [EKG Documentation Completion] [RC] STAT 12/25/18 22:14 Ondansetron [Zofran] 4 mg IVPUSH ONETIME ONE Sodium Chloride 0.9% [Normal Saline] 1,000 ml IV STAT - Assessment/Plan Last 24 Hours: My Active Orders 12/25/18 20:49 EKG 12 Lead [EKG Documentation Completion] [RC] STAT 12/25/18 22:14 Ondansetron [Zofran] 4 mg IVPUSH ONETIME ONE Sodium Chloride 0.9% [Normal Saline] 1,000 ml IV STAT
[2018-12-25] MEDS ORDERED: Morphine 2 MG/ML Syringe IVPUSH ONE (21:34)
--- NOTE | 2018-12-25 21:37 | CR ---
Indication: Injury and pain Technique: Right ankle 3 views Comparison: None Findings/Impression: Bones: Fractures are present in the distal fibular shaft and medial and posterior malleoli. Ankle joint is dislocated as visualized on the lateral image. Joint spaces: Ankle joint is dislocated. Soft tissues: Moderate generalized soft tissue swelling. Dictated by Erasmo Sandoval MD @ Dec 25 2018 9:34PM Signed by Dr. Erasmo Sandoval @ Dec 25 2018 9:36PM
--- NOTE | 2018-12-25 21:39 | CR ---
Indication: Injury and pain Technique: Right foot 2 views Comparison: None Findings/Impression: Bones: There are fractures of both the ankle joint and ankle joint dislocation. No fractures evident in the foot. Joint spaces: Joint spaces in the foot are unremarkable. Soft tissues: Unremarkable. Dictated by Erasmo Sandoval MD @ Dec 25 2018 9:36PM Signed by Dr. Erasmo Sandoval @ Dec 25 2018 9:37PM
--- NOTE | 2018-12-25 21:39 | CR ---
Indication: Injury and pain Technique: Right tibia and fibula 2 views Comparison: None Findings/Impression: Bones: Fractures in the distal tibia and fibula are detailed on the separate x-ray report of the ankle. Proximal to mid tibia and fibula are normal. Joint spaces: Knee joint is unremarkable. Soft tissues: Unremarkable. Dictated by Erasmo Sandoval MD @ Dec 25 2018 9:37PM Signed by Dr. Erasmo Sandoval @ Dec 25 2018 9:38PM
[2018-12-25 21:41] LABS: CHLORIDE,CL 100 mmol/L (98-107); SODIUM,NA 133 mmol/L (136-145)
[2018-12-25] MEDS ORDERED: Ondansetron 4 MG/2 ML SDV IVPUSH ONE ×2 (22:14→23:16)
[2018-12-25] MEDS ORDERED: Sodium Chloride 0.9% 1,000 ML IV ONE ×2 (22:14→22:51)
[2018-12-25] MEDS ORDERED: Pantoprazole 80 MG in Sodium Chloride 0.9% 100 ML IVPUSH ONE ×2 (22:48→22:54)
[2018-12-25] MEDS ORDERED: Sodium Chloride 0.9% 10 ML SDV IV ONE (22:51)
[2018-12-25] MEDS ORDERED: Pantoprazole 40 MG Vial IVPUSH STA (22:58)
[2018-12-25] MEDS ORDERED: HYDROmorphone 1 MG/ML Syringe IVPUSH ONE (23:10)
[2018-12-25 23:24] VITALS: BP 106/40
[2018-12-26] MEDS ORDERED: HYDROmorphone 1 MG/ML Syringe IVPUSH ONE (00:51)
== END 2018-12-26 01:17 ==
LOC: MW.ED 20:36
DX: S82.844A Nondisplaced bimalleolar fracture of right lower leg, initial encounter for closed fracture (principal); S82.831A Other fracture of upper and lower end of right fibula, initial encounter for closed fracture; I10 Essential (primary) hypertension; Z88.5 Allergy status to narcotic agent; E66.9 Obesity, unspecified; X50.1XXA Overexertion from prolonged static or awkward postures, initial encounter; Z68.30 Body mass index [BMI] 30.0-30.9, adult
CPT/HCPCS: 29515; 36415; 73590; 73610; 73620; 80053; 81001; 85025; 93005; 96361; 96374; 96375; 96376; 99285; C9113; G0480; J1170; J2270; J2405; J7040; J7050; 99284

== ENCOUNTER 2019-01-07 17:58 | Emergency (ER) | payer SELFPAY ==
--- NOTE | 2019-01-07 19:33 | CR ---
INDICATION: Pain, throbbing and burning for 2 days. TECHNIQUE: AP, oblique and cross-table lateral projections. COMPARISON: 12/25/2018. FINDINGS: Status post open reduction and internal fixation of fractures involving the fibula and distal tibia. Internal plate and screws at the fibula. Syndesmotic screws. Screw positioned through the medial distal tibial metaphysis. The fibular fracture remains mildly displaced. The ankle mortise is intact. Visualized hardware is intact. Surgical wound closure belem are present. IMPRESSION: Status post ORIF as described. No definite acute findings. Dictated by Maurizio Murray MD @ Jan 07 2019 7:29PM Signed by Dr. Maurizio Mruray @ Jan 07 2019 7:32PM
--- NOTE | 2019-01-07 19:46 | EDM.PDOC ---
ED HPI GENERAL MEDICAL PROBLEM - General Chief Complaint: Lower Extremity Injury/Pain Stated Complaint: BROKE RIGHT ANKLE Time Seen by Provider: 01/07/19 18:26 Source of Information: Reports: Patient History Limitations: Reports: No Limitations - History of Present Illness INITIAL COMMENTS - FREE TEXT/NARRATIVE: HISTORY AND PHYSICAL: History of present illness: Patient is a 48-year-old female who presents to the ED today with concern of splint discomfort following surgical repair of a trimalleolar fracture of her ankle. Patient states she's also concerned because she has bumped her foot a few times when trying to get around the house and just wants to make sure she has not been some hardware in her ankle. Patient denies any other symptoms or concerns at this time. Patient states there is pain and swelling of the foot but it has not worsened other than the cast/splint discomfort. Patient denies any new injury or trauma to the foot. Patient denies fever, chills, chest pain, shortness of breath, or cough. Denies headache, neck stiff ness, change in vision, syncope, or near syncope. Denies nausea, vomiting, abdominal pain, diarrhea, constipation, or dysuria. Has not noted any blood in urine or stool. Patient has been eating and drinking appropriately. Review of systems: As per history of present illness and below otherwise all systems reviewed and negative. Past medical history: As per history of present illness and as reviewed below otherwise noncontributory. Surgical history: As per history of present illness and as reviewed below otherwise noncontributory. Social history: See social history for further information Family history: As per history of present illness and as reviewed below otherwise noncontributory. Physical exam: General: Patient is alert, oriented, and in no acute distress. Patient sitting comfortably in wheelchair with right leg elevated. HEENT: Atraumatic, normocephalic, pupils equal and reactive bilaterally, negative for conjunctival pallor or scleral icterus, mucous membranes moist, TMs normal bilaterally, throat clear, neck supple, nontender, trachea midline. No drooling or trismus noted. No meningeal signs. No hot potato voice noted. Lungs: Clear to auscultation, breath sounds equal bilaterally, chest nontender. Heart: S1S2, regular rate and rhythm without overt murmur Abdomen: Soft, nondistended, nontender. Negative for masses or hepatosplenomegaly. Negative for costovertebral tenderness. Pelvis: Stable nontender. Genitourinary: Deferred. Rectal: Deferred. Skin: Intact, warm, dry. No lesions or rashes noted. Extremities: Negative for cords or calf pain. Neurovascular unremarkable. There are incisions on both the medial and lateral aspects of the ankle that have belem still intact. The incisions are not erythematous and appear to be healing well. There is no drainage from the sensation sites. There is some swelling of the generalized ankle and foot. Dorsalis pedis and posterior tibial pulses are intact with Doppler. Patient does have full range of motion of all digits on the foot. Neuro: Awake, alert, oriented. Cranial nerves II through XII unremarkable. Cerebellum unremarkable. Motor and sensory unremarkable throughout. Exam nonfocal. Notes: Did remove patient's splint and we splinted for patient to be a little bit more comfortable for her. Discussed the importance for follow-up with her orthopedic provider. Voices understanding and is agreeable to plan of care. Denies any further questions or concerns at this time. Diagnostics: Ankle x-ray Therapeutics: Splint Prescription: None Impression: Discomfort of splint Recent trimalleolar fracture surgery Plan: 1. Rest elevate the affected extremity. 2. Tylenol and/or Ibuprofen as directed for pain management or discomfort. 3. Follow up with the Orthopedic provider as discussed and as scheduled. Return to the ED as needed and as discussed. Definitive disposition and diagnosis as appropriate pending reevaluation and review of above. right ankle Pain Score (Numeric/FACES): 7 - Related Data Allergies Allergy/AdvReac Type Severity Reaction Status Date / Time pistachio nut Allergy Swelling Verified 12/25/18 20:41 strawberry Allergy Swelling Verified 12/25/18 20:41 tramadol Allergy Difficulty Verified 12/25/18 20:41 Breathing Home Meds: Home Meds . 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: Musculoskeletal History: Reports: Fracture Other Musculoskeletal History: hx fx wrist, fx left arm, Neurological History: Reports: Concussion Psychiatric History: Reports: Anxiety Endocrine/Metabolic History: Reports: Obesity/BMI 30+ Hematologic History: Reports: Blood Transfusion(s) Immunologic History: Reports: None Oncologic (Cancer) History: Reports: None Dermatologic History: Reports: Eczema - Infectious Disease History Infectious Disease History: Reports: None - Past Surgical History Head Surgeries/Procedures: Reports: None HEENT Surgical History: Reports: Visual Other HEENT Surgeries/Procedures: hx laser surgery for glaucoma Cardiovascular Surgical History: Reports: None Respiratory Surgical History: Reports: None GI Surgical History: Reports: Colonoscopy, EGD, Other (See Below) Female Surgical History: Reports: Tubal Ligation Endocrine Surgical History: Reports: None Neurological Surgical History: Reports: None Musculoskeletal Surgical History: Reports: ORIF Other Musculoskeletal Surgeries/Procedures:: hx ORIF left wrist (has hardware), hx of traumatic amputation of right thumb-reattached, 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 Oncologic Surgical History: Reports: None Dermatological Surgical History: Reports: None Social & Family History - Family History Family Medical History: Noncontributory - Tobacco Use Smoking Status *Q: Never Smoker - Caffeine Use Caffeine Use: Reports: None - Recreational Drug Use Recreational Drug Use: No Review of Systems - Review of Systems Review Of Systems: ROS reveals no pertinent complaints other than HPI. ED EXAM, GENERAL - Physical Exam Exam: See Below (See dictation) Course - Vital Signs Last Recorded V/S: Last Vital Signs Temp 36.3 C 01/07/19 18:13 Pulse 60 01/07/19 18:13 Resp 18 01/07/19 18:13 BP 141/54 H 01/07/19 18:13 Pulse Ox 98 01/07/19 18:13 - Orders/Labs/Meds Orders: Active Orders 24 hr Category Date Time Status Communication Order [RC] STAT Care 01/07/19 19:46 Ordered Departure - Departure Time of Disposition: 19:45 Disposition: Home, Self-Care 01 Clinical Impression: Encounter for assessment of cast, Recent surgical procedure on lower extremity - Discharge Information Instructions: Medical Screening Exam Referrals: PCP,None [Primary Care Provider] - Forms: ED Department Discharge Additional Instructions: The following information is given to patients seen in the emergency department who are being discharged to home. This information is to outline your options for follow-up care. We provide all patients seen in our emergency department with a follow-up referral. The need for follow-up, as well as the timing and circumstances, are variable depending upon the specifics of your emergency department visit. If you don't have a primary care physician on staff, we will provide you with a referral. We always advise you to contact your personal physician following an emergency department visit to inform them of the circumstance of the visit and for follow-up with them and/or the need for any referrals to a consulting specialist. The emergency department will also refer you to a specialist when appropriate. This referral assures that you have the opportunity for follow-up care with a specialist. All of these measure are taken in an effort to provide you with optimal care, which includes your follow-up. Under all circumstances we always encourage you to contact your private physician who remains a resource for coordinating your care. When calling for follow-up care, please make the office aware that this follow-up is from your recent emergency room visit. If for any reason you are refused follow-up, please contact the [facility] Emergency Department at and asked to speak to the emergency department charge nurse. [facility] [address] [place] [address] [place] [address] 1. Rest elevate the affected extremity. 2. Tylenol and/or Ibuprofen as directed for pain management or discomfort. 3. Follow up with the Orthopedic provider as discussed and as scheduled. Return to the ED as needed and as discussed. - My Orders Last 24 Hours: My Active Orders 01/07/19 19:46 Communication Order [RC] STAT - Assessment/Plan Last 24 Hours: My Active Orders 01/07/19 19:46 Communication Order [RC] STAT
[2019-01-07 20:10] VITALS: BP 137/56
== END 2019-01-07 20:10 | disposition home or self-care (01) ==
LOC: MW.ED 17:58
DX: S82.851D Displaced trimalleolar fracture of right lower leg, subsequent encounter for closed fracture with routine healing (principal); I10 Essential (primary) hypertension; E66.9 Obesity, unspecified; Z68.41 Body mass index [BMI] 40.0-44.9, adult; W01.0XXD Fall on same level from slipping, tripping and stumbling without subsequent striking against object, subsequent encounter; Z91.018 Allergy to other foods; Z88.5 Allergy status to narcotic agent
CPT/HCPCS: 73610-26-RT; 73610-RT; 99283-25

== ENCOUNTER 2019-05-15 13:36 | Emergency (ER) | payer MEDICAID ==
[2019-05-15 13:57] VITALS: BP 148/90; PULSE 69
[2019-05-15] MEDS ORDERED: Ketorolac 60 MG/2 ML SDV IM ONE (14:07)
--- NOTE | 2019-05-15 14:46 | EDM.PDOC ---
ED HPI GENERAL MEDICAL PROBLEM - General Chief Complaint: Respiratory Problem Stated Complaint: FLU SYMPTOMS Time Seen by Provider: 05/15/19 13:38 Source of Information: Reports: Patient History Limitations: Reports: No Limitations - History of Present Illness INITIAL COMMENTS - FREE TEXT/NARRATIVE: History of present illness: []She has had 3 days of flulike symptoms with congestion, head pressure, body aches, nausea, diarrhea, chills but denies any fevers. Review of systems: As per history of present illness and below otherwise all systems reviewed and negative. Past medical history: As per history of present illness and as reviewed below otherwise noncontributory. Surgical history: As per history of present illness and as reviewed below otherwise noncontributory. Social history: No reported history of drug or alcohol abuse. Family history: As per history of present illness and as reviewed below otherwise noncontributory. Physical exam: General: Well developed, well nourished in NAD HEENT: Atraumatic, normocephalic, pupils reactive, negative for conjunctival pallor or scleral icterus, mucous membranes moist, throat clear, neck supple, nontender, trachea midline. Lungs: Clear to auscultation, breath sounds equal bilaterally, chest nontender. Heart: S1S2, regular, negative for clicks, rubs, or JVD. Abdomen: NABS, Soft, nondistended, nontender. Negative for masses or hepatosplenomegaly. Negative for costovertebral tenderness. Pelvis: Stable nontender. Genitourinary: Deferred. Rectal: Deferred. Extremities: Atraumatic, negative for cords or calf pain. Neurovascular unremarkable. Neuro: Awake, alert, oriented. Cranial nerves II through XII unremarkable. Cerebellum unremarkable. Motor and sensory unremarkable throughout. Exam nonfocal. Skin:warm and dry Diagnostics: Influenza negative Therapeutics: Toradol ED Course: Stable Impression: viral URI Prescriptions: none Plan: Take meds as directed, follow up with your primary care physician, return to ER if symptoms worsen or change. Definitive disposition and diagnosis as appropriate pending reevaluation and review of above. headache/ears Pain Score (Numeric/FACES): 1 - Related Data Allergies Allergy/AdvReac Type Severity Reaction Status Date / Time pistachio nut Allergy Swelling Verified 05/15/19 13:57 strawberry Allergy Swelling Verified 05/15/19 13:57 tramadol Allergy Difficulty Verified 05/15/19 13:57 Breathing Home Meds: Home Meds Multivitamin [Multivitamins] 1 each PO DAILY 05/15/19 [History] Past Medical History HEENT History: Reports: Glaucoma, Other (See Below) Other HEENT History: wears glasses Cardiovascular History: Reports: Blood Clots/VTE/DVT, Hypertension Respiratory History: Reports: None Gastrointestinal History: Reports: Chronic Constipation, Diverticulosis, GERD Other Gastrointestinal History: diverticulitis Genitourinary History: Reports: Renal Calculus 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: Musculoskeletal History: Reports: Fracture Other Musculoskeletal History: hx fx wrist, fx left arm, Neurological History: Reports: Concussion Psychiatric History: Reports: Anxiety Endocrine/Metabolic History: Reports: Obesity/BMI 30+ Hematologic History: Reports: Blood Transfusion(s) Immunologic History: Reports: None Oncologic (Cancer) History: Reports: None Dermatologic History: Reports: Eczema - Infectious Disease History Infectious Disease History: Reports: None - Past Surgical History Head Surgeries/Procedures: Reports: None HEENT Surgical History: Reports: Visual Other HEENT Surgeries/Procedures: hx laser surgery for glaucoma Cardiovascular Surgical History: Reports: None Respiratory Surgical History: Reports: None GI Surgical History: Reports: Colonoscopy, EGD, Other (See Below) Female Surgical History: Reports: Tubal Ligation Endocrine Surgical History: Reports: None Neurological Surgical History: Reports: None Musculoskeletal Surgical History: Reports: ORIF Other Musculoskeletal Surgeries/Procedures:: hx ORIF left wrist (has hardware), hx of traumatic amputation of right thumb-reattached, 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 Oncologic Surgical History: Reports: None Dermatological Surgical History: Reports: None Social & Family History - Family History Family Medical History: Noncontributory - Tobacco Use Smoking Status *Q: Never Smoker - Caffeine Use Caffeine Use: Reports: None - Recreational Drug Use Recreational Drug Use: No ED ROS GENERAL - Review of Systems Review Of Systems: See Below ED EXAM, GENERAL - Physical Exam Exam: See Below Course - Vital Signs Last Recorded V/S: Last Vital Signs Temp 97.4 F 05/15/19 14:52 Pulse 69 05/15/19 13:55 Resp 18 05/15/19 13:55 BP 148/90 H 05/15/19 13:55 Pulse Ox 99 05/15/19 13:55 - Orders/Labs/Meds Meds: Medications Discontinued Medications Generic Name Dose Route Start Last Admin Trade Name Joey PRN Reason Stop Dose Admin Ketorolac Tromethamine 60 mg 05/15/19 14:07 05/15/19 14:12 Toradol IM 05/15/19 14:08 60 mg ONETIME ONE Administration Departure - Departure Time of Disposition: 14:46 Disposition: Home, Self-Care 01 Condition: Good Clinical Impression: Viral URI - Discharge Information *PRESCRIPTION DRUG MONITORING PROGRAM REVIEWED*: Not Applicable *COPY OF PRESCRIPTION DRUG MONITORING REPORT IN PATIENT KURT: Not Applicable Instructions: Upper Respiratory Infection, Adult, [id number], Viral Illness, Adult Referrals: PCP,None [Primary Care Provider] - Forms: ED Department Discharge Additional Instructions: The following information is given to patients seen in the emergency department who are being discharged to home. This information is to outline your options for follow-up care. We provide all patients seen in our emergency department with a follow-up referral. The need for follow-up, as well as the timing and circumstances, are variable depending upon the specifics of your emergency department visit. If you don't have a primary care physician on staff, we will provide you with a referral. We always advise you to contact your personal physician following an emergency department visit to inform them of the circumstance of the visit and for follow-up with them and/or the need for any referrals to a consulting specialist. The emergency department will also refer you to a specialist when appropriate. This referral assures that you have the opportunity for follow-up care with a specialist. All of these measure are taken in an effort to provide you with optimal care, which includes your follow-up. Under all circumstances we always encourage you to contact your private physician who remains a resource for coordinating your care. When calling for follow-up care, please make the office aware that this follow-up is from your recent emergency room visit. If for any reason you are refused follow-up, please contact the [facility] Emergency Department at and asked to speak to the emergency department charge nurse. Take meds as directed, follow up with your primary care physician, return to ER if symptoms worsen or change. [facility] [address] [place] [id number]
== END 2019-05-15 14:52 | disposition home or self-care (01) ==
LOC: MW.ED 13:36
DX: J06.9 Acute upper respiratory infection, unspecified (principal); I10 Essential (primary) hypertension; E66.9 Obesity, unspecified; Z88.5 Allergy status to narcotic agent; Z91.018 Allergy to other foods
CPT/HCPCS: 87804; 96372; 99284; J1885

== ENCOUNTER 2019-09-25 19:47 | Emergency (ER) | payer BC, MEDICAID ==
[2019-09-25 19:58] VITALS: BP 155/76; PULSE 81
--- NOTE | 2019-09-25 20:19 | EDM.PDOC ---
ED HPI GENERAL MEDICAL PROBLEM - General Chief Complaint: Respiratory Problem Stated Complaint: DRY COUGH,SOB, FEVER Time Seen by Provider: 09/25/19 20:13 Source of Information: Reports: Patient History Limitations: Reports: No Limitations - History of Present Illness INITIAL COMMENTS - FREE TEXT/NARRATIVE: This is a 48-year-old female who presents to the emergency room with a chief complaint of persistent cough on and off fever and some shortness of breath that is been going on for few months. Patient has had no imaging or no studies done. Patient states she has on and off fever and is a student in college. Patient has no known exposure to COV 19 Onset: Today Duration: Chronic Location: Reports: Chest Severity: Mild Improves with: Reports: None - Related Data Allergies Allergy/AdvReac Type Severity Reaction Status Date / Time pistachio nut Allergy Swelling Verified 09/25/19 19:54 strawberry Allergy Swelling Verified 09/25/19 19:54 tramadol Allergy Difficulty Verified 09/25/19 19:54 Breathing Home Meds: Home Meds . [No Known Home Meds] 09/25/19 [History] Past Medical History HEENT History: Reports: Glaucoma, Other (See Below) Other HEENT History: wears glasses Cardiovascular History: Reports: Blood Clots/VTE/DVT, Hypertension Respiratory History: Reports: None Gastrointestinal History: Reports: Chronic Constipation, Diverticulosis, GERD Other Gastrointestinal History: diverticulitis Genitourinary History: Reports: Renal Calculus [employer] History: Reports: Musculoskeletal History: Reports: Fracture, Other (See Below) Other Musculoskeletal History: hx fx wrist, fx left arm, ankle surgery Neurological History: Reports: Concussion Psychiatric History: Reports: Anxiety Endocrine/Metabolic History: Reports: Obesity/BMI 30+ Hematologic History: Reports: Blood Transfusion(s) Immunologic History: Reports: None Oncologic (Cancer) History: Reports: None Dermatologic History: Reports: Eczema - Infectious Disease History Infectious Disease History: Reports: None - Past Surgical History Head Surgeries/Procedures: Reports: None HEENT Surgical History: Reports: Visual Other HEENT Surgeries/Procedures: hx laser surgery for glaucoma Cardiovascular Surgical History: Reports: None Respiratory Surgical History: Reports: None GI Surgical History: Reports: Colonoscopy, EGD, Other (See Below) Female Surgical History: Reports: Tubal Ligation Endocrine Surgical History: Reports: None Neurological Surgical History: Reports: None Musculoskeletal Surgical History: Reports: ORIF Other Musculoskeletal Surgeries/Procedures:: hx ORIF left wrist (has hardware), hx of traumatic amputation of right thumb-reattached, 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 Oncologic Surgical History: Reports: None Dermatological Surgical History: Reports: None Social & Family History - Family History Family Medical History: Noncontributory - Tobacco Use Smoking Status *Q: Never Smoker - Caffeine Use Caffeine Use: Reports: Coffee, Tea - Recreational Drug Use Recreational Drug Use: No ED ROS GENERAL - Review of Systems Review Of Systems: See Below Constitutional: Reports: Fever HEENT: Reports: Rhinitis Respiratory: Reports: Shortness of Breath, Cough Cardiovascular: Reports: No Symptoms Endocrine: Reports: No Symptoms GI/Abdominal: Reports: No Symptoms : Reports: No Symptoms Musculoskeletal: Reports: No Symptoms Skin: Reports: No Symptoms Neurological: Reports: No Symptoms Psychiatric: Reports: No Symptoms Hematologic/Lymphatic: Reports: No Symptoms Immunologic: Reports: No Symptoms ED EXAM, GENERAL - Physical Exam Exam: See Below Exam Limited By: No Limitations General Appearance: Alert, WD/WN, Mild Distress Eye Exam: Bilateral Eye: EOMI, Normal Fundi, Normal Inspection Ears: Normal External Exam, Normal Canal, Hearing Grossly Normal, Normal TMs Ear Exam: Bilateral Ear: Auricle Normal, Canal Normal, TM normal, TM Bulging, TM Perforation Nose: Normal Inspection, Normal Mucosa, No Blood Throat/Mouth: Normal Inspection, Normal Lips, Normal Teeth Head: Atraumatic, Normocephalic Neck: Normal Inspection, Supple, Non-Tender Respiratory/Chest: No Respiratory Distress, Lungs Clear, Normal Breath Sounds, No Accessory Muscle Use Cardiovascular: Normal Peripheral Pulses, Regular Rate, Rhythm, No JVD, No Murmur GI/Abdominal: Normal Bowel Sounds, Soft, Non-Tender, No Distention (Female) Exam: Deferred Rectal (Female) Exam: Deferred Back Exam: Normal Inspection, Full Range of Motion Extremities: Normal Inspection, Normal Range of Motion, No Pedal Edema, Normal Capillary Refill Neurological: Alert, Oriented, CN II-XII Intact, Normal Reflexes, No Motor/ Sensory Deficits Psychiatric: Normal Affect, Normal Mood Skin Exam: Warm, Dry, Intact Lymphatic: No Adenopathy Course - Vital Signs Text/Narrative:: Patient evaluated in the emergency room. Patient is not hypoxic. Patient's chest x-ray is normal. Patient has normal CBC. Patient has received albuterol inhaler for symptoms. Assessment: Shortness of breath no evidence of bacterial infection/patient is to follow-up with primary care physician Last Recorded V/S: Last Vital Signs Temp 97.3 F 09/25/19 19:55 Pulse 81 09/25/19 19:55 Resp 20 09/25/19 19:55 BP 155/76 H 09/25/19 19:55 Pulse Ox 100 09/25/19 19:55 - Orders/Labs/Meds Orders: Active Orders 24 hr Category Date Time Status RT Aerosol Therapy [RC] ASDIRECTED Care 09/25/19 22:01 Active RT Post Treatment Assessment [RC] Click to Edit Care 09/25/19 20:21 Active RT Pre-Treatment Assessment [RC] Click to Edit Care 09/25/19 20:21 Active Labs: Laboratory Tests 09/25/19 09/25/19 Range/Units 21:11 21:11 WBC 7.83 (4.0-11.0) K/uL RBC 4.51 (4.30-5.90) M/uL Hgb 13.3 (12.0-16.0) g/dL Hct 40.8 (36.0-46.0) % MCV 90.5 (80.0-98.0) fL MCH 29.5 (27.0-32.0) pg MCHC 32.6 (31.0-37.0) g/dL RDW Std Deviation 45.7 (28.0-62.0) fl RDW Coeff of Jennifer 14 (11.0-15.0) % Plt Count 265 (150-400) K/uL MPV 10.10 (7.40-12.00) fL Neut % (Auto) 57.0 (48.0-80.0) % Lymph % (Auto) 31.8 (16.0-40.0) % [place]leigh % (Auto) 8.0 (0.0-15.0) % Eos % (Auto) 2.6 (0.0-7.0) % Baso % (Auto) 0.6 (0.0-1.5) % Neut # (Auto) 4.5 (1.4-5.7) K/uL Lymph # (Auto) 2.5 H (0.6-2.4) K/uL Burleigh # (Auto) 0.6 (0.0-0.8) K/uL Eos # (Auto) 0.2 (0.0-0.7) K/uL Baso # (Auto) 0.1 (0.0-0.1) K/uL Nucleated RBC % 0.0 /100WBC Nucleated RBCs # 0 K/uL Sodium 129 L (136-145) mmol/L Potassium 3.9 (3.5-5.1) mmol/L Chloride 102 (98-107) mmol/L Carbon Dioxide 26.5 (21.0-32.0) mmol/L BUN 17 (7.0-18.0) mg/dL Creatinine 1.1 H (0.6-1.0) mg/dL Est Cr Clr Drug Dosing 46.68 mL/min Estimated GFR (MDRD) 52.8 ml/min Glucose 101 (74-106) mg/dL Calcium 8.9 (8.5-10.1) mg/dL Total Bilirubin 0.2 (0.2-1.0) mg/dL AST 11 L (15-37) IU/L ALT 24 (14-63) IU/L Alkaline Phosphatase 96 (46-116) U/L Total Protein 7.0 (6.4-8.2) g/dL Albumin 3.2 L (3.4-5.0) g/dL Globulin 3.8 (2.6-4.0) g/dL Albumin/Globulin Ratio 0.8 L (0.9-1.6) Meds: Medications Discontinued Medications Generic Name Dose Route Start Last Admin Trade Name Joey PRN Reason Stop Dose Admin Albuterol 2 gm 09/25/19 20:20 09/25/19 21:01 Ventolin Hfa INH 09/25/19 20:21 2 puff ONETIME ONE Administration Albuterol/Ipratropium 3 ml 09/25/19 22:01 09/25/19 22:16 Duoneb 3.0-0.5 Mg/3 Ml NEB 09/25/19 22:02 3 ml ONETIME ONE Administration Departure - Departure Time of Disposition: 22:33 Disposition: Home, Self-Care 01 Condition: Good Clinical Impression: URI (upper respiratory infection), Viral URI - Discharge Information Instructions: Viral Respiratory Infection, [id number] Referrals: PCP,None [Primary Care Provider] - Forms: ED Department Discharge Additional Instructions: Patient is to follow-up with her primary care physician. If patient develops more shortness of breath and fevers she needs to be reevaluated. Sepsis Event Note - Evaluation Sepsis Screening Result: No Definite Risk - Focused Exam Vital Signs: Vital Signs Temp Pulse Resp BP Pulse Ox 09/25/19 19:55 97.3 F 81 20 155/76 H 100 Date Exam was Performed: 09/25/19 Time Exam was Performed: 22:31 - My Orders Last 24 Hours: My Active Orders 09/25/19 20:21 RT Post Treatment Assessment [RC] Click to Edit RT Pre-Treatment Assessment [RC] Click to Edit 09/25/19 22:01 RT Aerosol Therapy [RC] ASDIRECTED - Assessment/Plan Last 24 Hours: My Active Orders 09/25/19 20:21 RT Post Treatment Assessment [RC] Click to Edit RT Pre-Treatment Assessment [RC] Click to Edit 09/25/19 22:01 RT Aerosol Therapy [RC] ASDIRECTED
[2019-09-25] MEDS ORDERED: Albuterol 8 GM Inhaler INH ONE (20:20)
[2019-09-25 21:42] LABS: CARBON DIOXIDE,CO2 26.5 mmol/L (21.0-32.0); POTASSIUM,K 3.9 mmol/L (3.5-5.1)
[2019-09-25] MEDS ORDERED: Albuterol/Ipratropium 3.0-0.5 MG/3 ML Neb Soln NEB ONE (22:01)
--- NOTE | 2019-09-25 22:29 | CR ---
INDICATION: sob TECHNIQUE: Chest 1 view. COMPARISON: 02/08/18 FINDINGS: Cardiovascular and mediastinum: Heart size and vasculature are normal in caliber and appearance. Mediastinum is within normal limits. Lungs and pleural space: Lungs are clear. No sign of infiltrate or mass. No sign of pleural effusion. No pneumothorax. Bones and soft tissues: No significant findings. IMPRESSION: Unremarkable chest. Dictated by: Gary Lord MD @ 09/25/2019 22:28:47 (Electronically Signed)
== END 2019-09-25 22:48 | disposition home or self-care (01) ==
LOC: MW.ED 19:47
DX: J06.9 Acute upper respiratory infection, unspecified (principal); E66.9 Obesity, unspecified; Z68.42 Body mass index [BMI] 45.0-49.9, adult
CPT/HCPCS: 36415; 71045; 80053; 85025; 99285; A9270; 99283; J7620-GY

== ENCOUNTER 2021-07-25 21:19 | Emergency (ER) | payer MEDICAID ==
[2021-07-26] MEDS ORDERED: Lactated Ringers 1,000 ML IV ONE (00:04)
[2021-07-26] MEDS ORDERED: Sodium Chloride 0.9% 2.5 ML Syringe FLUSH PRN (00:04)
[2021-07-26] MEDS ORDERED: Ondansetron 4 MG/2 ML SDV IVPUSH ONE (00:04)
[2021-07-26] MEDS ORDERED: Ketorolac 30 MG/ML SDV IVPUSH ONE (00:04)
[2021-07-26] MEDS ORDERED: Sodium Chloride 0.9% 10 ML Syringe FLUSH PRN (00:04)
[2021-07-26 01:14] LABS: CORONAVIRUS COVID-19 NAA POSITIVE (NEGATIVE); INFLUENZA A NAA NEGATIVE (NEGATIVE); INFLUENZA B NAA NEGATIVE (NEGATIVE)
[2021-07-26 01:17] LABS: CARBON DIOXIDE,CO2 25.1 mmol/L (21.0-32.0); POTASSIUM,K 3.2 mmol/L (3.5-5.1)
[2021-07-26 03:11] VITALS: BP 118/59; PULSE 79
[2021-07-29 12:08] LABS: C.TRACHOMATIS BY TMA Negative (Negative); N.GONORRHOEAE BY TMA Negative (Negative)
== END 2021-07-26 03:11 | disposition home or self-care (01) ==
LOC: MW.ED 21:19
DX: U07.1 COVID-19 (principal); N39.0 Urinary tract infection, site not specified; I10 Essential (primary) hypertension; E66.9 Obesity, unspecified; Z68.41 Body mass index [BMI] 40.0-44.9, adult; Z88.5 Allergy status to narcotic agent; Z91.018 Allergy to other foods
CPT/HCPCS: 0240U; 71045; 74176; 80053; 81001; 81025; 83605; 83690; 85025; 85610; 87491; 87591; 96374; 96375; 99284; J1885; J2405; J7120